=== PATIENT | male | born 1990 | race African-American/Black ===

== ENCOUNTER 2017-11-17 15:02 | Emergency (ER) | payer MEDICAID, SELFPAY ==
[2017-11-17 15:02] VITALS: BP 134/101; PULSE 74; RESP 18; TEMP 37.3; O2SAT 99; BMI 30.7
[2017-11-17] MEDS: 0.9% Normal Saline 1,000 ML 1000 ML IV (15:46)
[2017-11-17] MEDS: Ondansetron 4 MG/2 ML Vial IV (15:47)
[2017-11-17] MEDS: Morphine 4 MG/ML Syringe IV (15:47)
--- NOTE | 2017-11-17 15:49 | ED.VISSUMM ---
- ER Visit Summary Date of Service: 11/17/17 Chief Complaint: Abdominal pain, nausea, vomiting, diarrhea History of Present Illness: The patient is a 26 M who woke early this morning with abdominal pain around the umbilicus rates up into the epigastrium. He describes as a sharp cramping type pain. He has had nausea and vomiting states he is now just dry heaving. He has had some diarrhea. No blood associated. He has not had measured fever. He does report this is been a recurrent issue for him over the last 3 years, most recently occurring in July. He is never followed up with a primary care physician or a GI specialist. Physical Examination: Vital signs are unremarkable. Temperature here is 99.1. Head and neck examination is unremarkable. Heart is regular rate and rhythm. Lung sounds are clear. Abdomen is soft with mild diffuse tenderness to palpation. There is no guarding or rebound. No palpable hernias are noted. Hypoactive bowel sounds are present throughout. Test Results: CBC was a white count 12.3 with 80% neutrophils. Chemistry studies unremarkable. LFTs and lipase are normal. Emergency Department Course and Treatment: Patient was given IV fluids, morphine, and Zofran. On repeat evaluation is resting comfortably. Abdomen is soft with mild diffuse tenderness. No guarding or rebound. At this time is able to tolerate ice chips. He is instructed to follow bland diet. Because this is a recurrent issue over the last several years I recommended follow-up with a GI specialist as he may have underlying ulcerative colitis, Crohn's disease, etc. He will be given a prescription for Bentyl and Zofran at home. Treatment Plan: [] Disposition: Discharge Impression: Vomiting, improved This note was generated with [employer] dictation software. It may contain incorrect words, spelling, and punctuation that were not noted in review of the chart prior to signing ED Disposition - Plan for ED Patient: Chief Complaint: Abd Pain Referrals: NOT,DEFINED [NON-STAFF] -
[2017-11-17 16:01] LABS: Absolute Lymphocyte Count 1.43 X10^3/ul (0.83-4.51); Absolute Neutrophil Count 10.1 X10^3/uL (2.0-7.7); Basophil# 0.01 X10^3/uL; Basophil% 0.1 % (0-1); Eosinophil# 0.01 X10^3/uL; Eosinophils% 0.1 % (0-5); Hematocrit 41.9 % (40-54); Hemoglobin 14.1 g/dl (13.0-16.5); Lymphocyte # 1.43 X10^3/ul (4.0); Lymphocyte % 11.7 % (19-41); Mean Corp Hgb Conc 33.7 g/gl (32-36); Mean Corpuscular Hgb 28.8 pg (27.0-32.0); Mean Corpuscular Volume 85.7 fL (80-94); Mean Platelet Vol. 9.2 fl (6.2-12.0); Monocyte# 0.66 X10^3/uL; Monocyte% 5.4 % (0-10); Neutrophil # 10.14 X10^3/uL (2.7-7.7); Neutrophil % 82.5 % (47-70); Platelet Count 231 K/mm3 (150-450); RBC Distribution Width CV 12.7 % (11.6-14.6); RBC Distribution Width SD 39.6 fl (35.1-43.9); Red Blood Count 4.89 M/mm3 (4.6-6.2); White Blood Count 12.3 K/mm3 (4.4-11.0)
[2017-11-17 16:04] LABS: POSITIVE COUNT NO; POSITIVE DIFFERENTIAL NO; POSITIVE MORPHOLOGY NO
[2017-11-17 16:18] LABS: AST(SGOT) 21 U/L (15-37); Alanine Aminotransfer ALT/SGPT 28 U/L (16-61); Alkaline Phosphatase 63 U/L (45-117); Anion Gap 9 (5-15); BUN 13 mg/dL (7-18); BUN/Creat Ratio 12.1 RATIO (10-20); Bilirubin, Direct 0.24 mg/dL (0.00-0.30); Calcium,Total 8.6 mg/dL (8.5-10.1); Chloride 105 mmol/L (98-107); Creatinine, Serum 1.07 mg/dL (0.70-1.30); EST Glomerular Filtration Rate 88 mL/min (>60); Est Glom Filt Rate - Afr Amer 107 mL/min (>60); Estimated Creatinine Clearance 121.64 ml/min; Globulin 3.6 g/dL (2.2-4.2); Glucose 95 mg/dL (74-106); Lipase 191 U/L (73-393); Potassium 3.9 mmol/L (3.5-5.1); Protein, Total 7.6 g/dL (6.4-8.2); Sodium Level 139 mmol/L (136-145)
--- NOTE | 2017-11-17 16:54 | ED.DEP ---
ED Disposition - Plan for ED Patient: Disposition: Home or Assisted Living Chief Complaint: Abd Pain Instructions: ED Abdominal Pain Unkn Cause Male, ED Nausea Vomiting Prescriptions: Ondansetron [Zofran Odt] 4 mg PO Q8H PRN PRN #10 tablet PRN Reason: Nausea Dicyclomine HCl [Bentyl] 20 mg PO TIDAC #20 capsule Referrals: Michael Price MD [STAFF PHYSICIAN] - Fabian Donahue MD [NON-STAFF] -
[2017-11-17 17:01] VITALS: BP 149/68; PULSE 67; RESP 15; O2SAT 98
== END 2017-11-17 17:14 | disposition home or self-care (01) ==
PROVIDERS: Emergency Provider Emergency Medicine
DX: R11.2 Nausea with vomiting, unspecified (principal); R10.33 Periumbilical pain; R10.13 Epigastric pain; R19.7 Diarrhea, unspecified
CPT/HCPCS: 80048; 80076; 83690; 85025; 96361; 96374; 96375; 99283; J7030; A4216; J2405

== ENCOUNTER 2020-12-14 08:22 | Outpatient (RCR) | payer BC, SELFPAY ==
[2020-12-14] MEDS: COVID-19 VACC, MRNA(PFIZER)/PF 30 MCG/0.3 ML SYRINGE IM (13:55)
[2021-01-04] MEDS: COVID-19 VACC, MRNA(PFIZER)/PF 30 MCG/0.3 ML SYRINGE IM (13:40)
== END 2021-01-31 23:59 ==
LOC: IMMUN 08:22
PROVIDERS: Referring Provider Family Medicine; Visit Provider Family Medicine
DX: Z23 Encounter for immunization (principal)
CPT/HCPCS: 0001A; 0002A; 91300

== ENCOUNTER 2021-10-02 14:53 | Outpatient (CLI) | payer BC, SELFPAY | END 2021-10-02 23:59 | disposition home or self-care (01) | LOC: IMMUN 10-03 14:54 | PROVIDERS: Referring Provider Family Medicine; Visit Provider Family Medicine | DX: Z23 Encounter for immunization (principal) ==